=== PATIENT | female | born 1960 | race Caucasian/White ===

== ENCOUNTER → 2017-09-13 | Outpatient (CLI) | payer OTHER ==
--- NOTE | 2017-09-13 10:47 | DIAGNOSTIC IMAGING REPORT ---
L FOOT MIN 3 VIEWS ROUTINE HISTORY: 57 years-old Female L FOOT PAIN acute left-sided foot pain COMPARISON: None available TECHNIQUE: 3 views of the left foot FINDINGS: No acute fracture, dislocation or significant degenerative changes. Mild dorsal spurring about the midfoot. Moderate sized enthesophyte about the plantar calcaneus with small enthesophyte at the Achilles insertion site calcaneus. Suggested Kita deformity of the calcaneus. IMPRESSION: Mild degenerative changes without acute fracture. The above report was generated using voice recognition software. It may contain grammatical, syntax or spelling errors. Electronically signed by: Dawit Marie M.D. 09/13/2017 10:46 AM Dictated Date/Time: 09/13/2017 10:44 AM
== END | disposition home or self-care (01) ==
LOC: C.RAD1850 10:25
PROVIDERS: ATTEND Family Medicine
DX: M79.672 Pain in left foot (principal)